=== PATIENT | male | born 1995 | race Caucasian/White ===

== ENCOUNTER 2017-08-04 20:14 | Emergency (ER) | payer SELFPAY ==
[2017-08-04 21:08] LABS: #Lymphocytes 0.7 thou/uL (1.20-3.40); #Monocytes 0.8 thou/uL (0.11-0.59); #Neutrophils 10.4 thou/uL (1.40-6.50); %Basophils 0.2 % (0.0-1.0); %Eosinophils 0.4 % (0.0-10.0); %Lymphocytes 5.6 % (28.0-48.0); %Monocytes 6.8 % (0.0-4.0); %Neutrophils 87.1 % (31.0-61.0); Hemoglobin 17.7 g/dL (14.0-18.0); Mean Corpuscular HGB CONC 34.1 g/dL (32.0-36.0); Mean Corpuscular Hemoglobin 30.6 pg (25.0-35.0); Mean Corpuscular Volume 89.9 fl (77.0-87.0); Mean Platelet Volume 6.7 fL (7.4-10.4); Platelet Count 248 thou/uL (130-400); RBC Distribution Width 12.2 % (11.5-14.5); Red Blood Cell (RBC) Count 5.77 mill/uL (4.00-5.20); White Blood Cell (WBC) Count 11.9 thou/uL (4.8-10.8)
[2017-08-04 21:29] LABS: ALT (SGPT) 13 U/L (8-55); AST (SGOT) 21 U/L (10-45); Alkaline Phosphatase 72 U/L (Less than 750); Anion Gap 16 mmol/L (10-20); BUN (Urea Nitrogen) 11 mg/dL (8.4-21.0); Bilirubin, Total 0.7 mg/dL (0.2-1.2); Calc. Creatinine Clearance 0 mL/min (70-130); Calcium 10.1 mg/dL (7.8-10.44); Carbon Dioxide 25 mmol/L (22-29); Chloride 100 mmol/L (98-107); Estimated GFR-MDRD Greater than 90; Globulin 3.1 g/dL (2.4-3.5); Glucose 91 mg/dL (70-105); Potassium 4.5 mmol/L (3.5-5.1); Protein, Total 8.1 g/dL (6.0-8.3); Sodium 136 mmol/L (136-145)
[2017-08-04] MEDS ORDERED: Ondansetron ODT 4 MG TAB ONE (21:33)
== END 2017-08-04 22:36 | disposition left against medical advice (07) ==
LOC: ERS 20:14
DX: Z53.21 Procedure and treatment not carried out due to patient leaving prior to being seen by health care provider (principal)
CPT/HCPCS: 36415; 80053; 85025; Q0162

== ENCOUNTER 2017-12-01 17:01 | Emergency (ER) | payer SELFPAY ==
[~2017-12-01 17:01] MED LIST: ISOVUE-370 76%-LOCM 1 ML ONE
--- NOTE | 2017-12-01 17:55 | RAD ---
TWO VIEWS OF THE CHEST: 12/01/17 COMPARISON: None. HISTORY: Cough for six months. FINDINGS: Two views of the chest show normal sized cardiomediastinal silhouette. There is no evidence of consol idation, mass, or pleural effusion. The bones are unremarkable. IMPRESSION: No evidence of acute cardiopulmonary disease. POS: [facility]
[2017-12-01 18:06] LABS: #Basophils 0.1 thou/uL (0.0-0.2); #Eosinphils 0.2 thou/uL (0.0-0.7); #Monocytes 0.6 thou/uL (0.11-0.59); #Neutrophils 4.1 thou/uL (1.40-6.50); %Basophils 1.7 % (0.0-1.0); %Eosinophils 2.6 % (0.0-10.0); %Lymphocytes 28.1 % (28.0-48.0); %Monocytes 8.7 % (0.0-4.0); Hemoglobin 16.9 g/dL (14.0-18.0); Mean Corpuscular HGB CONC 34.3 g/dL (32.0-36.0); Mean Corpuscular Hemoglobin 31.6 pg (25.0-35.0); Mean Corpuscular Volume 92.1 fL (78.0-98.0); Mean Platelet Volume 6.4 fL (7.4-10.4); Platelet Count 292 thou/uL (130-400); RBC Distribution Width 12.1 % (11.5-14.5); Red Blood Cell (RBC) Count 5.36 mill/uL (4.00-5.20)
[2017-12-01 18:09] LABS: Bilirubin Negative (Negative); Blood, Urine Negative (Negative); Clarity CLEAR (Clear); Glucose, Urine (Dipstick) Negative (Negative); Leukocyte Negative (Negative); Nitrite Negative (Negative); Protein, Urine (Dipstick) 30 mg/dL (Neg-Trace); Specific Gravity, Urine 1.022 (1.002-1.036); pH, Urine 6.5 (5.0-9.0)
[2017-12-01 18:13] LABS: Bacteria/HPF None Seen HPF (None Seen); Hyaline Casts/LPF 4-6 HYALINE CAST LPF (0-3 Hyaline); Pathc Cast-AUWi Flag 0.14 (0-2.49); Squamous Epithelial None Seen HPF (0-3)
[2017-12-01 18:28] LABS: ALT (SGPT) 11 U/L (8-55); AST (SGOT) 18 U/L (5-34); Albumin 4.8 g/dL (3.5-5.0); Alkaline Phosphatase 70 U/L (Less than 750); Anion Gap 14 mmol/L (10-20); BUN (Urea Nitrogen) 11 mg/dL (8.9-20.6); Bilirubin, Total 1.4 mg/dL (0.2-1.2); Calc. Creatinine Clearance 0 mL/min (70-130); Calcium 9.8 mg/dL (7.8-10.44); Carbon Dioxide 23 mmol/L (22-29); Chloride 104 mmol/L (98-107); Estimated GFR-MDRD Greater than 90; Globulin 2.8 g/dL (2.4-3.5); Glucose 86 mg/dL (70-105); Lipase 8 U/L (8-78); Potassium 3.9 mmol/L (3.5-5.1); Protein, Total 7.6 g/dL (6.0-8.3); Sodium 137 mmol/L (136-145)
--- NOTE | 2017-12-01 19:58 | CT ---
CT THORAX WITH IV CONTRAST: 12/01/17 HISTORY: Cough and dyspnea. Patient has been complaining of a cough for six months which is increasing in claudia rity over the past few weeks. FINDINGS: The lungs are clear. There is no evidence of a pulmonary nodule, mass, or pleural effusions seen. The tracheal and bronchial airways were visualized do appear patent. There is mild residual thymus seen within the anterior superior mediastinum. Mediastinal structures o therwise have a normal appearance. There is no evidence of lymphadenopathy. Thoracic aorta is normal in caliber. Upper abdomen demonstrates a normal CT appearance. IMPRESSION: No acute findings are seen. POS: [facility]
[2017-12-05 01:08] LABS: Chlamydia by PCR Not Detected (NotDetected); GC by PCR Not Detected (NotDetected)
== END 2017-12-01 19:35 | disposition home or self-care (01) ==
LOC: ERS 17:01
DX: M94.0 Chondrocostal junction syndrome [Tietze] (principal); F90.9 Attention-deficit hyperactivity disorder, unspecified type; F91.3 Oppositional defiant disorder; Z71.6 Tobacco abuse counseling
CPT/HCPCS: 36415; 71046; 71260; 80053; 81003; 81015; 83690; 85025; 87086; 87491; 87591; 99406

== ENCOUNTER 2017-12-04 11:33 | Emergency (ER) | payer SELFPAY ==
[2017-12-04 12:00] LABS: #Eosinphils 0.2 thou/uL (0.0-0.7); #Lymphocytes 1.5 thou/uL (1.20-3.40); #Monocytes 0.6 thou/uL (0.11-0.59); #Neutrophils 5.4 thou/uL (1.40-6.50); %Basophils 0.4 % (0.0-1.0); %Eosinophils 2.1 % (0.0-10.0); %Lymphocytes 19.1 % (28.0-48.0); %Monocytes 7.6 % (0.0-4.0); %Neutrophils 70.8 % (31.0-61.0); Hemoglobin 15.3 g/dL (14.0-18.0); Mean Corpuscular HGB CONC 33.1 g/dL (32.0-36.0); Mean Corpuscular Hemoglobin 31.3 pg (25.0-35.0); Mean Corpuscular Volume 94.4 fL (78.0-98.0); Mean Platelet Volume 6.8 fL (7.4-10.4); Platelet Count 236 thou/uL (130-400); RBC Distribution Width 12.2 % (11.5-14.5); White Blood Cell (WBC) Count 7.6 thou/uL (4.8-10.8)
[2017-12-04 12:15] LABS: ALT (SGPT) 9 U/L (8-55); AST (SGOT) 16 U/L (5-34); Albumin 4.4 g/dL (3.5-5.0); Alkaline Phosphatase 61 U/L (Less than 750); Anion Gap 15 mmol/L (10-20); BUN (Urea Nitrogen) 9 mg/dL (8.9-20.6); Bilirubin, Total 0.7 mg/dL (0.2-1.2); Calc. Creatinine Clearance 0 mL/min (70-130); Calcium 8.9 mg/dL (7.8-10.44); Carbon Dioxide 18 mmol/L (22-29); Chloride 108 mmol/L (98-107); Estimated GFR-MDRD Greater than 90; Globulin 2.3 g/dL (2.4-3.5); Glucose 101 mg/dL (70-105); Potassium 4.1 mmol/L (3.5-5.1); Protein, Total 6.7 g/dL (6.0-8.3); Sodium 137 mmol/L (136-145)
[2017-12-04] MEDS ORDERED: Divalproex Sodium 250 MG (DR) TAB PO ONE (12:45)
[2017-12-04] MEDS ORDERED: Acetaminophen 500 MG TAB ONE (12:55)
--- NOTE | 2017-12-04 13:17 | CT ---
CT OF THE BRAIN WITHOUT CONTRAST: INDICATION: History of seizures and fall and head pain. COMPARISON: None. FINDINGS: No acute infarct, hemorrhage, or hydrocephalus is present. The septum pellucidum and third ventricle are midline. The skull and extracranial soft tissues appear within normal limits. IMPRESSION: No acute intracranial abnormality. POS: [facility]
== END 2017-12-04 13:30 | disposition home or self-care (01) ==
LOC: ERS 11:33
DX: R56.9 Unspecified convulsions (principal); F90.9 Attention-deficit hyperactivity disorder, unspecified type; F91.3 Oppositional defiant disorder
CPT/HCPCS: 36415; 36416; 70450; 80053; 84146; 85025

== ENCOUNTER 2017-12-23 11:07 | Emergency (ER) | payer SELFPAY ==
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
[2017-12-23 11:43] LABS: Bilirubin Negative (Negative); Blood, Urine Small (Negative); Clarity CLEAR (Clear); Glucose, Urine (Dipstick) Negative (Negative); Leukocyte Negative (Negative); Nitrite Negative (Negative); Protein, Urine (Dipstick) 30 mg/dL (Neg-Trace); Specific Gravity, Urine 1.009 (1.002-1.036); Urobilinogen 0.2 mg/dL (0.2-1.0); pH, Urine 5.5 (5.0-9.0)
[2017-12-23 11:49] LABS: Bacteria/HPF None Seen HPF (None Seen); Hyaline Casts/LPF 0-3 HYALINE CAST LPF (0-3 Hyaline); RBC/HPF 0-3 HPF (0-3); Squamous Epithelial None Seen HPF (0-3); WBC/HPF 0-3 HPF (0-3)
[2017-12-23 12:09] LABS: #Basophils 0.1 thou/uL (0.0-0.2); #Eosinphils 0.1 thou/uL (0.0-0.7); #Lymphocytes 1.3 thou/uL (1.20-3.40); #Monocytes 0.6 thou/uL (0.11-0.59); #Neutrophils 5.8 thou/uL (1.40-6.50); %Basophils 0.7 % (0.0-1.0); %Eosinophils 1.6 % (0.0-10.0); %Neutrophils 73.7 % (31.0-61.0); Hemoglobin 15.5 g/dL (14.0-18.0); Mean Corpuscular HGB CONC 33.3 g/dL (32.0-36.0); Mean Corpuscular Hemoglobin 30.4 pg (25.0-35.0); Mean Corpuscular Volume 91.1 fL (78.0-98.0); Mean Platelet Volume 8.4 fL (7.4-10.4); Platelet Count 169 thou/uL (130-400); RBC Distribution Width 12.1 % (11.5-14.5); White Blood Cell (WBC) Count 7.9 thou/uL (4.8-10.8)
[2017-12-23 12:36] LABS: ALT (SGPT) 11 U/L (8-55); AST (SGOT) 19 U/L (5-34); Albumin 4.4 g/dL (3.5-5.0); Alkaline Phosphatase 56 U/L (Less than 750); Anion Gap 12 mmol/L (10-20); BUN (Urea Nitrogen) 11 mg/dL (8.9-20.6); Bilirubin, Total 0.6 mg/dL (0.2-1.2); Calc. Creatinine Clearance 0 mL/min (70-130); Calcium 8.8 mg/dL (7.8-10.44); Carbon Dioxide 22 mmol/L (22-29); Chloride 108 mmol/L (98-107); Estimated GFR-MDRD Greater than 90; Globulin 2.1 g/dL (2.4-3.5); Glucose 88 mg/dL (70-105); Potassium 3.6 mmol/L (3.5-5.1); Protein, Total 6.5 g/dL (6.0-8.3); Sodium 138 mmol/L (136-145)
== END 2017-12-23 13:13 | disposition home or self-care (01) ==
LOC: ERS 11:07
DX: R56.9 Unspecified convulsions (principal); F90.9 Attention-deficit hyperactivity disorder, unspecified type; F91.3 Oppositional defiant disorder; Z79.899 Other long term (current) drug therapy
CPT/HCPCS: 70450; 80053; 81003; 81015; 84146; 85025

== ENCOUNTER 2018-02-02 11:51 | Emergency (ER) | payer OTHER, SELFPAY ==
--- NOTE | 2018-02-02 13:29 | RAD ---
3 VIEWS RIGHT SHOULDER: Date: 02/02/18 COMPARISON: None. HISTORY: Injury, trauma, pain. FINDINGS: There is widening of the acromioclavicular and coracoclavicular interspace. No displaced fracture or dislocation. IMPRESSION: Widening of the right AC and CC interspace concerning for a Grade III AC joint injury. Orthopedic con sultation is advised. POS: [facility]
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
--- NOTE | 2018-02-02 13:55 | RAD ---
FRONTAL RADIOGRAPH CHEST 2 VIEWS RIGHT RIBS: Date: 02/02/18 COMPARISON: None. HISTORY: Pain, trauma, injury. FINDINGS: Incompletely visualized widening of the acromioclavicular and coracoclavicular interspace noted on th e right suggesting a right Grade III AC joint injury. No pneumothorax, pleural fluid, focal consolida tion, or alveolar edema. Two dedicated radiographs of the right ribs demonstrate no displaced fractur e. IMPRESSION: Findings suggesting a Grade III AC joint injury on the right. No additional findings are noted. POS: [facility]
== END 2018-02-02 13:57 | disposition home or self-care (01) ==
LOC: SCSER 11:51
DX: S43.151A Posterior dislocation of right acromioclavicular joint, initial encounter (principal); F90.9 Attention-deficit hyperactivity disorder, unspecified type; F91.3 Oppositional defiant disorder; Z79.899 Other long term (current) drug therapy; V59.9XXA Occupant (driver) (passenger) of pick-up truck or van injured in unspecified traffic accident, initial encounter
CPT/HCPCS: 70486

== ENCOUNTER 2022-04-13 16:39 | Emergency (ER) | payer SELFPAY ==
[2022-04-13] MEDS ORDERED: Acetaminophen 500 MG TAB ONE (17:00)
== END 2022-04-13 17:46 ==
LOC: ERS 16:39
DX: R51.9 Headache, unspecified (principal)
CPT/HCPCS: 70450